=== PATIENT | female | born 1955 | race African-American/Black ===

== ENCOUNTER 2017-07-20 11:54 | Emergency (ER) | payer BC, OTHER ==
[2017-07-20 12:19] VITALS: BMI 46.3
--- NOTE | 2017-07-20 12:41 | DR.GENAD ---
HPI - PCP Primary Care Physician: TATIANA - Complaint/Symptoms Chief Complaint Doctors Comments: Patient reports that she had a cardiac cath two months in [place] and heart function was 50%, no stents placed. She has been having episodes of chest pain manifested by SOB and mid-sternal pain. She denies a family history of cardiac disease. Chief Complaint:: PT STATES SHE HAS BEEN HAVING CHEST PAIN SINCE FRIDAY. PT ALSO C/O SOB AND SOME DIZZINESS EARLIER. TODAY. NO C/O DIZZINESS AT THIS TIME. - Source History Provided: Patient - Mode of Arrival Mode of Arrival: Ambulatory - Timing Onset of Chief Complaint: 07/18/17 PMH - PMH Past Medical History: Yes Past Medical History: Angina, Diabetes, GERD Past Surgical History: Yes Surgical History: Ortho Surgery - Family History History of Family Medical Conditions: Yes Family Medical History: Cancer, Hypertension - Social History Does patient currently use any type of tobacco product: No Have you used tobacco products in the last 12 months: No Type of Tobacco Use: None Alcohol Use: None Do you use any recreational Drugs:: No Lives With: Spouse Lives Where: Home - infectious screening In the last 2 months have you had wt loss of >10#?: NO Have you had fever, night sweats or hemotysis?: No Have you traveled outside the country in the last 6 months?: No Isolation: Standard ROS - Review of Systems Eyes: No Symptoms Reported ENTM: No Symptoms Reported Respiratoy: No Symptoms Reported Cardiovascular: No Symptoms Reported Gastrointestinal/Abdominal: No Symptoms Reported Genitourinary: No Symptoms Reported Neurological: No Symptoms Reported Musculoskeletal: No Symptoms Reported Integumentary: No Symptoms Reported Hematologic/Lymphatic: No Symptoms Reported Endocrine: No Symptoms Reported Psychiatric: No Symptoms Reported All Other Systems: Reviewed and Negative PE - Vital Signs Vitals: Temperature 97.8 F Pulse Rate [Apical] 57 Pulse Rate 64 Respiratory Rate 14 Blood Pressure [Right Arm] 146/63 Blood Pressure [Left Arm] 145/67 Blood Pressure 212/80 O2 Sat by Pulse Oximetry 100 - General Limitations: No Limitations General Appearance: Alert, In No Apparent Distress - Head Head Exam: Normal Inspection, Atraumatic - Eyes Eye exam: Normal Appearance, PERRL, EOMI - ENT ENT Exam: Normal Exam External Ear Exam: Normal External Inspection TM/Canal Exam: Bilateral Normal Nose Exam: Normal Nose Exam, Sinus Tenderness Mouth Exam: Normal Inspection Throat Exam: Normal Inspection - Neck Neck Exam: Normal Inspection, Full ROM - Chest Chest Inspection: Normal Inspection - Respiratory Respiratory Exam: Normal Lung Sounds Bilat Respiratory Exam: Bilateral Clear to Auscultation - Cardiovascular Cardiovascular Exam: Regular Rate, Normal Rhythm - Abdominal Exam Abdominal Exam: Normal Inspection, Normal Bowel Sounds Abdominal Tenderness: negative: RUQ, RLQ, LUQ, LLQ, Epigastrium, Suprapubic, Diffuse, Mild, Moderate, Severe, Other - Extremities Extremities Exam: Normal Inspection, Full ROM - Back Back Exam: Normal Inspection, Full ROM - Neurologic Neurological Exam: Alert, Oriented X3, CN II-XII Intact - Psychiatric Psychiatric Exam: Normal Affect - Skin Skin Exam: Warm, Dry Course - Reevaluation 1st: Improved, Unchanged - Consultation Called: 13:40 (Dr Polo agreed to admit for chest pain r/0) ROR - Labs Reviewed Result Diagrams: 07/20/17 12:43 07/20/17 12:43 Laboratory: WBC 8.4 X10^3/uL (3.6-10.0) 07/20/17 12:43 RBC 4.70 X10^6/uL (3.5-5.4) 07/20/17 12:43 Hgb 14.0 g/dL (12.0-16.0) 07/20/17 12:43 Hct 41.0 % (36.0-47.0) 07/20/17 12:43 MCV 87.2 fL (80.0-100.0) 07/20/17 12:43 MCH 29.7 pg (27.0-34.0) 07/20/17 12:43 MCHC 34.1 g/dL (33.0-35.0) 07/20/17 12:43 RDW 13.7 % (11.6-16.5) 07/20/17 12:43 Plt Count 174 X10^3/uL (150.0-450.0) 07/20/17 12:43 MPV 9.9 fL (7.4-11.0) 07/20/17 12:43 Neut % 50.1 % (42.0-75.0) 07/20/17 12:43 Lymph % 36.1 % (21.0-51.0) 07/20/17 12:43 [place] % 10.5 % (0.0-13.0) 07/20/17 12:43 Eos % 2.5 % (0.9-2.9) 07/20/17 12:43 Baso % 0.8 % (0.2-1.0) 07/20/17 12:43 Neut # 3.9 x10^3/uL (2.2-4.8) 07/20/17 12:43 Lymph # 2.8 X10^3/uL (1.3-2.9) 07/20/17 12:43 [place] # 0.8 x10^3/uL (0.3-0.8) 07/20/17 12:43 Eos # 0.2 x10^3/uL (0.0-0.2) 07/20/17 12:43 Baso # 0.1 X10^3/uL (0.0-0.1) 07/20/17 12:43 Absolute Nucleated RBC 0.0 /100WBC 07/20/17 12:43 INR Target Range - 07/20/17 12:43 INR 0.94 (0.8-1.3) 07/20/17 12:43 PTT 29.6 SECONDS (22.9-36.5) 07/20/17 12:43 PTT Comment - 07/20/17 12:43 D-Dimer 232 ng/mL (0-400) 07/20/17 12:43 Sodium 140 mmol/L (136-145) 07/20/17 12:43 Corrected Sodium TNP 07/20/17 12:43 Potassium 4.3 mmol/L (3.5-5.1) 07/20/17 12:43 Chloride 102 mmol/L (98-107) 07/20/17 12:43 Carbon Dioxide 29.7 mmol/L (21-32) 07/20/17 12:43 BUN 11 mg/dL (7-18) 07/20/17 12:43 Creatinine 0.90 mg/dL (0.55-1.02) 07/20/17 12:43 Est GFR (MDRD) Af Amer > 60 (>60) 07/20/17 12:43 Est GFR (MDRD) Non-Af > 60 (>60) 07/20/17 12:43 Glucose 110 mg/dL (65-99) H 07/20/17 12:43 Calcium 8.8 mg/dL (8.5-10.1) 07/20/17 12:43 Corrected Calcium TNP 07/20/17 12:43 Magnesium 1.5 mg/dL (1.7-2.9) L 07/20/17 12:43 Total Bilirubin 0.60 mg/dL (0.2-1.0) 07/20/17 12:43 AST 19 Units/L (15-37) 07/20/17 12:43 ALT 17 Units/L (12-78) 07/20/17 12:43 Alkaline Phosphatase 110 Units/L (46-116) 07/20/17 12:43 Creatine Kinase 143 Units/L (26-192) 07/20/17 12:43 CK-MB (CK-2) 1.4 ng/mL (0-4.0) 07/20/17 12:43 CK/CKMB % Calc 1.0 % (<4) 07/20/17 12:43 Troponin I < 0.02 ng/mL (0-1.5) 07/20/17 12:43 Total Protein 7.7 g/dL (6.4-8.2) 07/20/17 12:43 Albumin 3.7 g/dL (3.4-5.0) 07/20/17 12:43 Globulin 4.0 g/dL (2.5-4.5) 07/20/17 12:43 Albumin/Globulin Ratio 0.9 Ratio (1.1-2.1) L 07/20/17 12:43 - XRAY XRAY Interpreted by: Radiologist (Chest: Continued normal heart size with clear lungs and plerual spaces. There is no evidence for pneumonia or pneumothorax) - Diagnosis Discharge Problem: Chest pain Qualifiers: Chest pain type: unspecified Qualified Code(s): R07.9 - Chest pain, unspecified - Discharge Plan Condition: Stable - Follow ups/Referrals Follow ups/Referrals: He Pearson [Primary Care Provider] - 3 days - Instructions
--- NOTE | 2017-07-20 12:52 | RAD ---
Examination: Portable AP chest History: Chest pain Comparison reference 11/10/2013 Findings: Continued normal heart size with clear lungs and pleural spaces. There is no evidence for p neumonia, or pneumothorax. Impression: No change or acute abnormality demonstrated. Reported By:
[2017-07-20 12:56] LABS: BASOPHILS # (AUTO) 0.1 X10^3/uL (0.0-0.1); BASOPHILS % (AUTO) 0.8 % (0.2-1.0); EOSINOPHILS # (AUTO) 0.2 x10^3/uL (0.0-0.2); EOSINOPHILS % (AUTO) 2.5 % (0.9-2.9); LYMPHOCYTES # (AUTO) 2.8 X10^3/uL (1.3-2.9); LYMPHOCYTES % (AUTO) 36.1 % (21.0-51.0); MEAN CORPUSCULAR HEMOGLOBIN 29.7 pg (27.0-34.0); MEAN CORPUSCULAR HGB CONC 34.1 g/dL (33.0-35.0); MEAN CORPUSCULAR VOLUME 87.2 fL (80.0-100.0); MEAN PLATELET VOLUME 9.9 fL (7.4-11.0); MONOCYTES # (AUTO) 0.8 x10^3/uL (0.3-0.8); MONOCYTES % (AUTO) 10.5 % (0.0-13.0); NEUTROPHILS # (AUTO) 3.9 x10^3/uL (2.2-4.8); NEUTROPHILS % (AUTO) 50.1 % (42.0-75.0); PLATELET COUNT 174 X10^3/uL (150.0-450.0); RED CELL DISTRIBUTION WIDTH 13.7 % (11.6-16.5); WHITE BLOOD COUNT 8.4 X10^3/uL (3.6-10.0)
[2017-07-20] MEDS ORDERED: NORMODYNE INJ 20 MG VIAL IVP ONE (13:06)
[2017-07-20] MEDS ORDERED: CATAPRES TAB 0.1 MG PO ONE (13:09)
[2017-07-20 13:10] LABS: BLOOD UREA NITROGEN 11 mg/dL (7-18); CALCIUM 8.8 mg/dL (8.5-10.1); CARBON DIOXIDE 29.7 mmol/L (21-32); CHLORIDE 102 mmol/L (98-107); SODIUM 140 mmol/L (136-145); TROPONIN I < 0.02 ng/mL (0-1.5); eGFR BLACK RACES > 60 (>60); eGFR NON BLACK RACES > 60 (>60)
[2017-07-20] MEDS ORDERED: CATAPRES TAB 0.1 MG ONE (13:11)
[2017-07-20] MEDS: NS 1000 ML 1,000 ML IV SCH ×2 (13:14→17:15)
[2017-07-20 13:15] LABS: ALANINE AMINOTRANSFERASE 17 Units/L (12-78); ALBUMIN 3.7 g/dL (3.4-5.0); ALKALINE PHOSPHATASE 110 Units/L (46-116); ASPARTATE AMINO TRANSFERASE 19 Units/L (15-37); CREATINE KINASE 143 Units/L (26-192); CREATINE KINASE MB 1.4 ng/mL (0-4.0); MAGNESIUM 1.5 mg/dL (1.7-2.9); TOTAL PROTEIN 7.7 g/dL (6.4-8.2)
[2017-07-20] MEDS ORDERED: MORPHINE SULFATE INJ 4 MG IVP ONE (14:13)
[2017-07-20] MEDS ORDERED: ZOFRAN INJ 4 MG VIAL IVP PRN (14:14)
[2017-07-20] MEDS ORDERED: MORPHINE SULFATE INJ 4 MG ONE (14:16)
[2017-07-20] MEDS ORDERED: MORPHINE SULFATE INJ 4 MG IVP PRN (15:51)
[2017-07-20] MEDS ORDERED: ENTRESTO 24/26 MG TAB PO SCH (16:15)
[2017-07-20 18:55] LABS: CKMB % 1.2 % (<4); CREATINE KINASE 98 Units/L (26-192); CREATINE KINASE MB 1.2 ng/mL (0-4.0); TROPONIN I < 0.02 ng/mL (0-1.5)
[2017-07-20] MEDS ORDERED: GLUCOPHAGE ONE (19:37)
[2017-07-20] MEDS: GLUCOPHAGE PO SCH (20:28)
[2017-07-20] MEDS: ENTRESTO 24/26 MG TAB PO SCH (20:29)
[2017-07-20] MEDS: COREG TAB 12.5 MG PO SCH (20:29)
[2017-07-21 00:53] LABS: CKMB % 1.4 % (<4); CREATINE KINASE 85 Units/L (26-192); CREATINE KINASE MB 1.2 ng/mL (0-4.0); TROPONIN I < 0.02 ng/mL (0-1.5)
[2017-07-21] MEDS: NS 1000 ML 1,000 ML IV SCH ×2 (05:02→17:39)
[2017-07-21 06:28] LABS: BASOPHILS % (AUTO) 0.5 % (0.2-1.0); EOSINOPHILS # (AUTO) 0.2 x10^3/uL (0.0-0.2); EOSINOPHILS % (AUTO) 2.8 % (0.9-2.9); HEMATOCRIT 33.9 % (36.0-47.0); HEMOGLOBIN 11.6 g/dL (12.0-16.0); LYMPHOCYTES # (AUTO) 2.6 X10^3/uL (1.3-2.9); LYMPHOCYTES % (AUTO) 41.3 % (21.0-51.0); MEAN CORPUSCULAR HGB CONC 34.3 g/dL (33.0-35.0); MEAN CORPUSCULAR VOLUME 87.6 fL (80.0-100.0); MEAN PLATELET VOLUME 9.6 fL (7.4-11.0); MONOCYTES # (AUTO) 0.7 x10^3/uL (0.3-0.8); MONOCYTES % (AUTO) 11.8 % (0.0-13.0); NEUTROPHILS # (AUTO) 2.7 x10^3/uL (2.2-4.8); NEUTROPHILS % (AUTO) 43.6 % (42.0-75.0); PLATELET COUNT 198 X10^3/uL (150.0-450.0); RED BLOOD COUNT 3.88 X10^6/uL (3.5-5.4); WHITE BLOOD COUNT 6.3 X10^3/uL (3.6-10.0)
[2017-07-21 06:35] LABS: ALANINE AMINOTRANSFERASE 14 Units/L (12-78); ALBUMIN 2.8 g/dL (3.4-5.0); ALKALINE PHOSPHATASE 79 Units/L (46-116); ASPARTATE AMINO TRANSFERASE 10 Units/L (15-37); BLOOD UREA NITROGEN 13 mg/dL (7-18); CALCIUM 8.2 mg/dL (8.5-10.1); CARBON DIOXIDE 32.5 mmol/L (21-32); CHLORIDE 104 mmol/L (98-107); CHOL/HDL RATIO 2.4 (0.0-5.0); CHOLESTEROL 173 mg/dL (0-200); COR CA(FOR HYPOALB) 9.2 mg/dL (8.5-10.1); CREATININE 0.85 mg/dL (0.55-1.02); HDL CHOLESTEROL 72 mg/dL (40-60); SODIUM 142 mmol/L (136-145); TRIGLYCERIDES 35 mg/dL (0-150); eGFR BLACK RACES > 60 (>60); eGFR NON BLACK RACES > 60 (>60)
--- NOTE | 2017-07-21 07:20 | RAD ---
HISTORY: Chest pain, shortness of breath Study: Single-view of chest Comparison: July 20, 2017 Findings: The cardiac silhouette is unremarkable. Slight elevation of right hemidiaphragm is again demonstrated . No evidence of focal consolidation or effusion is appreciated. Postsurgical changes of the right hu merus are noted. IMPRESSION: No evidence of acute disease within the chest. Reported By:
[2017-07-21] MEDS ORDERED: GLUCOPHAGE ONE ×2 (08:14→20:10)
[2017-07-21] MEDS: PriLOSEC PO SCH (08:31)
[2017-07-21] MEDS: GLUCOPHAGE PO SCH ×2 (08:31→20:30)
[2017-07-21] MEDS: ALDACTONE TAB 25 MG PO SCH (08:31)
[2017-07-21] MEDS: ENTRESTO 24/26 MG TAB PO SCH ×2 (08:32→20:29)
[2017-07-21] MEDS: COREG TAB 12.5 MG PO SCH ×2 (08:32→20:30)
[2017-07-21] MEDS: LASIX PO SCH (08:33)
[2017-07-21] MEDS ORDERED: COREG TAB 12.5 MG PO SCH (09:00)
[2017-07-21] MEDS ORDERED: VALSARTAN PO SCH (09:00)
[2017-07-21] MEDS ORDERED: OMEPRAZOLE 20 MG PO SCH (09:00)
[2017-07-21] MEDS ORDERED: SACUBITRIL PO SCH (09:00)
[2017-07-22] MEDS: NS 1000 ML 1,000 ML IV SCH (05:07)
[2017-07-22] MEDS ORDERED: GLUCOPHAGE ONE (07:47)
[2017-07-22 08:10] LABS: BASOPHILS # (AUTO) 0.1 X10^3/uL (0.0-0.1); BASOPHILS % (AUTO) 1.2 % (0.2-1.0); EOSINOPHILS # (AUTO) 0.2 x10^3/uL (0.0-0.2); EOSINOPHILS % (AUTO) 2.5 % (0.9-2.9); HEMATOCRIT 38.2 % (36.0-47.0); HEMOGLOBIN 12.6 g/dL (12.0-16.0); LYMPHOCYTES # (AUTO) 2.5 X10^3/uL (1.3-2.9); LYMPHOCYTES % (AUTO) 36.6 % (21.0-51.0); MEAN CORPUSCULAR HEMOGLOBIN 29.4 pg (27.0-34.0); MEAN CORPUSCULAR HGB CONC 33.1 g/dL (33.0-35.0); MEAN CORPUSCULAR VOLUME 88.9 fL (80.0-100.0); MEAN PLATELET VOLUME 9.5 fL (7.4-11.0); MONOCYTES # (AUTO) 0.7 x10^3/uL (0.3-0.8); MONOCYTES % (AUTO) 9.9 % (0.0-13.0); NEUTROPHILS # (AUTO) 3.5 x10^3/uL (2.2-4.8); NEUTROPHILS % (AUTO) 49.8 % (42.0-75.0); PLATELET COUNT 209 X10^3/uL (150.0-450.0); WHITE BLOOD COUNT 6.9 X10^3/uL (3.6-10.0)
[2017-07-22] MEDS: COREG TAB 12.5 MG PO SCH (08:10)
[2017-07-22] MEDS: LASIX PO SCH (08:10)
[2017-07-22] MEDS: GLUCOPHAGE PO SCH (08:10)
[2017-07-22] MEDS: ENTRESTO 24/26 MG TAB PO SCH (08:10)
[2017-07-22] MEDS: PriLOSEC PO SCH (08:10)
[2017-07-22] MEDS: ALDACTONE TAB 25 MG PO SCH (08:11)
[2017-07-22 08:23] LABS: ALANINE AMINOTRANSFERASE 16 Units/L (12-78); ALKALINE PHOSPHATASE 93 Units/L (46-116); ASPARTATE AMINO TRANSFERASE 15 Units/L (15-37); BLOOD UREA NITROGEN 11 mg/dL (7-18); CALCIUM 8.4 mg/dL (8.5-10.1); CARBON DIOXIDE 29.1 mmol/L (21-32); CHLORIDE 105 mmol/L (98-107); COR CA(FOR HYPOALB) 9.2 mg/dL (8.5-10.1); COR NA(FOR HYPERGLY) 141 mmol/L (136-145); CREATININE 0.95 mg/dL (0.55-1.02); SODIUM 140 mmol/L (136-145); TOTAL PROTEIN 6.7 g/dL (6.4-8.2); eGFR BLACK RACES > 60 (>60); eGFR NON BLACK RACES > 60 (>60)
[2017-07-22 12:49] VITALS: BP 137/63
--- NOTE | 2017-08-03 15:59 | DR.H&P ---
H&P - History & Physical for Day of: H&P Date: 07/20/17 - Chief Complaint Chief Complaint: Chest Pain - Allergies Allergies/Adverse Reactions: Allergies Allergy/AdvReac Type Severity Reaction Status Date / Time aspirin Allergy Verified 07/20/17 13:26 - History of Present Illness History of Present Illness: Patient presents to [facility] with complaint of 3 day history of CP. Patient reports that she had a cardiac cath two months in [place] and heart function was 50%, no stents placed. She has been having episodes of chest pain manifested by SOB and mid-sternal pain. She denies a family history of cardiac disease. Does have complaint of dizziness. - Past Medical History Past Medical History: Angina, Diabetes, GERD - Past Surgical History Surgical History: Angioplasty/Stents, Ortho Surgery, Other - Family History Family Medical History: Diabetes Mellitus, Cancer, Hypertension - Social History Does patient currently use any type of tobacco product: No Have you used tobacco products in the last 12 months: No Type of Tobacco Use: None Does any household member use tobacco: No Alcohol Use: None Drug Use: None - Medications Home Medications: Carvedilol 1 tab PO BID 07/20/17 [History Confirmed 07/20/17] Furosemide 1 tab PO DAILY 07/20/17 [History Confirmed 07/20/17] Metformin HCl [GLUCOPHAGE 500 MG *] 1 tab PO BID 07/20/17 [History Confirmed ] Sacubitril/Valsartan [Entresto 49 mg-51 mg Tablet] 1 tab PO BID 07/20/17 [ History Confirmed 07/20/17] Spironolactone 1 tab PO DAILY 07/20/17 [History Confirmed 07/20/17] - Review of Systems Constitutional: See HPI Eyes: No Symptoms Reported ENT: No Symptoms Reported Respiratory: Shortness of Breath Cardiovascular: Chest Pain, Orthopnea, Light Headedness Gastrointestinal: No Symptoms Reported Genitourinary: No Symptoms Reported Musculoskeletal: No Symptoms Reported Skin: No Symptoms Reported Neurological: No Symptoms Reported - Physical Exam Vital Signs: Temperature 97.9 F Pulse Rate [Apical] 60 Pulse Rate 64 Respiratory Rate 18 Blood Pressure [Right Arm] 137/82 Blood Pressure [Left Arm] 137/63 Blood Pressure 212/80 O2 Sat by Pulse Oximetry 100 Oriented: Normal Eyes: Normal Ear: Normal Nose: Normal Throat: Normal Respiratory: Clear Throughout Cardiovascular: Normal : Normal Auscultation: Bowel Sounds: Normal Palpation: Normal Tenderness: Normal Musculoskeletal: Normal Psychiatric: Normal Mood Description: Calm Affect: Normal Speech Pattern: Clear - Assessment/Plan (1) Coronary artery disease Status: Acute Plan: SERIAL EKGS, CARDIAC ENZYMES. TELEMETRY (2) Chest pain Qualifiers: Chest pain type: unspecified Qualified Code(s): R07.9 - Chest pain, unspecified Status: Acute Plan: SERIAL CARDIAC ENZYMES, EKGS. TELEMETRY
--- NOTE | 2017-08-10 21:17 | PCM.PROG ---
Progress Note - Progress Note for Day of Date: 07/21/17 - Subjective Subjective: Patient presents to [facility] with complaint of 3 day history of CP. Patient reports that she had a cardiac cath two months in [place] and heart function was 50%, no stents placed. She has been having episodes of chest pain manifested by SOB and mid-sternal pain. She denies a family history of cardiac disease. Does have complaint of dizziness. Patient states pain has improved. - Past Medical Family Social History Past Med/Fam/Surg Hx: No changes since H&P Allergies: Allergies aspirin Allergy (Verified 07/20/17 13:26) - Review of Systems ROS: No change since H&P - Vital Signs and I&O's Vital Signs: Temperature 97.9 F Pulse Rate [Apical] 60 Pulse Rate 64 Respiratory Rate 18 Blood Pressure [Right Arm] 137/82 Blood Pressure [Left Arm] 137/63 Blood Pressure 212/80 O2 Sat by Pulse Oximetry 100 - Physical Exam Oriented: Normal Eyes: Normal Ear: Normal Nose: Normal Throat: Normal Cardiovascular: Normal : Normal Auscultation: Bowel Sounds: Normal Tenderness: Normal Musculoskeletal: Normal Psychiatric: Normal Mood Description: Calm Affect: Normal Speech Pattern: Clear - Laboratory and Diagnostics Result Diagrams: 07/22/17 07:50 07/22/17 07:50 Labs: Laboratory WBC 6.9 X10^3/uL (3.6-10.0) 07/22/17 07:50 RBC 4.30 X10^6/uL (3.5-5.4) 07/22/17 07:50 Hgb 12.6 g/dL (12.0-16.0) 07/22/17 07:50 Hct 38.2 % (36.0-47.0) 07/22/17 07:50 MCV 88.9 fL (80.0-100.0) 07/22/17 07:50 MCH 29.4 pg (27.0-34.0) 07/22/17 07:50 MCHC 33.1 g/dL (33.0-35.0) 07/22/17 07:50 RDW 14.0 % (11.6-16.5) 07/22/17 07:50 Plt Count 209 X10^3/uL (150.0-450.0) 07/22/17 07:50 MPV 9.5 fL (7.4-11.0) 07/22/17 07:50 Neut % 49.8 % (42.0-75.0) 07/22/17 07:50 Lymph % 36.6 % (21.0-51.0) 07/22/17 07:50 [place] % 9.9 % (0.0-13.0) 07/22/17 07:50 Eos % 2.5 % (0.9-2.9) 07/22/17 07:50 Baso % 1.2 % (0.2-1.0) H 07/22/17 07:50 Neut # 3.5 x10^3/uL (2.2-4.8) 07/22/17 07:50 Lymph # 2.5 X10^3/uL (1.3-2.9) 07/22/17 07:50 [place] # 0.7 x10^3/uL (0.3-0.8) 07/22/17 07:50 Eos # 0.2 x10^3/uL (0.0-0.2) 07/22/17 07:50 Baso # 0.1 X10^3/uL (0.0-0.1) 07/22/17 07:50 Absolute Nucleated RBC 0.1 /100WBC 07/22/17 07:50 INR Target Range - 07/20/17 12:43 INR 0.94 (0.8-1.3) 07/20/17 12:43 PTT 29.6 SECONDS (22.9-36.5) 07/20/17 12:43 PTT Comment - 07/20/17 12:43 D-Dimer 232 ng/mL (0-400) 07/20/17 12:43 Sodium 140 mmol/L (136-145) 07/22/17 07:50 Corrected Sodium 141 mmol/L (136-145) 07/22/17 07:50 Potassium 4.3 mmol/L (3.5-5.1) 07/22/17 07:50 Chloride 105 mmol/L (98-107) 07/22/17 07:50 Carbon Dioxide 29.1 mmol/L (21-32) 07/22/17 07:50 BUN 11 mg/dL (7-18) 07/22/17 07:50 Creatinine 0.95 mg/dL (0.55-1.02) 07/22/17 07:50 Est GFR (MDRD) Af Amer > 60 (>60) 07/22/17 07:50 Est GFR (MDRD) Non-Af > 60 (>60) 07/22/17 07:50 Glucose 137 mg/dL (65-99) H 07/22/17 07:50 POC Glucose (mg/dL) 162 mg/dL (65-99) H 07/22/17 13:04 Calcium 8.4 mg/dL (8.5-10.1) L 07/22/17 07:50 Corrected Calcium 9.2 mg/dL (8.5-10.1) 07/22/17 07:50 Magnesium 1.5 mg/dL (1.7-2.9) L 07/20/17 12:43 Total Bilirubin 0.30 mg/dL (0.2-1.0) 07/22/17 07:50 AST 15 Units/L (15-37) 07/22/17 07:50 ALT 16 Units/L (12-78) 07/22/17 07:50 Alkaline Phosphatase 93 Units/L (46-116) 07/22/17 07:50 Creatine Kinase 85 Units/L (26-192) 07/21/17 00:18 CK-MB (CK-2) 1.2 ng/mL (0-4.0) 07/21/17 00:18 CK/CKMB % Calc 1.4 % (<4) 07/21/17 00:18 Troponin I < 0.02 ng/mL (0-1.5) 07/21/17 00:18 Total Protein 6.7 g/dL (6.4-8.2) 07/22/17 07:50 Albumin 3.0 g/dL (3.4-5.0) L 07/22/17 07:50 Globulin 3.7 g/dL (2.5-4.5) 07/22/17 07:50 Albumin/Globulin Ratio 0.8 Ratio (1.1-2.1) L 07/22/17 07:50 Triglycerides 35 mg/dL (0-150) 07/21/17 04:20 Cholesterol 173 mg/dL (0-200) 07/21/17 04:20 LDL Cholesterol, Calc 94 mg/dL (0-100) 07/21/17 04:20 HDL Cholesterol 72 mg/dL (40-60) H 07/21/17 04:20 Cholesterol/HDL Ratio 2.4 (0.0-5.0) 07/21/17 04:20 - Plan (1) Coronary artery disease Status: Acute Plan: SERIAL EKGS, CARDIAC ENZYMES. TELEMETRY (2) Chest pain Status: Acute Qualifiers: Chest pain type: unspecified Qualified Code(s): R07.9 - Chest pain, unspecified Plan: SERIAL CARDIAC ENZYMES, EKGS. TELEMETRY
== END 2017-07-22 13:25 | disposition home or self-care (01) ==
LOC: ER 12:15 → MED/SURG 14:07
PROVIDERS: ADMIT Internal Medicine; ATTEND Internal Medicine
DX: R07.89 Other chest pain (principal); R06.02 Shortness of breath; E11.65 Type 2 diabetes mellitus with hyperglycemia; K21.9 Gastro-esophageal reflux disease without esophagitis; R94.31 Abnormal electrocardiogram [ECG] [EKG]; I25.10 Atherosclerotic heart disease of native coronary artery without angina pectoris; I10 Essential (primary) hypertension
CPT/HCPCS: 36415; 71010; 71045; 80053; 80061; 82550; 82553; 83735; 84484; 85025; 85378; 85610; 85730; 93005; 94760; 96365; 96374; 99218; 99284; A4216; A4222; G0378; J2270